=== PATIENT | male | born 1970 | race Two or more races ===

== ENCOUNTER 2024-12-15 06:48 | Day surgery (SDC) | payer BC, OTHER ==
[2024-12-15] MEDS ORDERED: propofoL 500 MG/50 ML 50 ML ONE (07:17)
[2024-12-15] MEDS: Lactated Ringers 1,000 ML IV SCH (07:19)
[2024-12-15] MEDS ORDERED: Lactated Ringers 1,000 ML IV SCH (08:30)
== END 2024-12-15 09:05 | disposition home or self-care (01) ==
LOC: MW.SDS 06:48 → MERGE 08:00 → MW.SDS 09:05
PROVIDERS: ATTEND Surgery
DX: Z12.11 Encounter for screening for malignant neoplasm of colon (principal); K57.30 Diverticulosis of large intestine without perforation or abscess without bleeding; E11.9 Type 2 diabetes mellitus without complications; I10 Essential (primary) hypertension; F17.200 Nicotine dependence, unspecified, uncomplicated; Z88.8 Allergy status to other drugs, medicaments and biological substances; Z79.899 Other long term (current) drug therapy
CPT/HCPCS: 45378; J2704; J7120